=== PATIENT | female | born 1975 | race African-American/Black ===

== ENCOUNTER 2018-07-18 17:05 | Emergency (ER) | payer SELFPAY ==
[~2018-07-18] VITALS: Ht 157.5 cm; Wt 104.0 kg
[2018-07-18 19:54] VITALS: BP 140/71
== END 2018-07-19 01:40 | disposition home or self-care (01) ==
LOC: ER 23:29
DX: M72.2 Plantar fascial fibromatosis (principal); R03.0 Elevated blood-pressure reading, without diagnosis of hypertension; F17.210 Nicotine dependence, cigarettes, uncomplicated
CPT/HCPCS: 81025; 99283

== ENCOUNTER 2019-08-12 17:37 | Emergency (ER) | payer OTHER ==
[~2019-08-12] VITALS: Ht 160 cm; Wt 102.0 kg
[2019-08-12] MEDS ORDERED: ASPIRIN 81MG TABLET PO ONE (19:15)
[2019-08-12] MEDS ORDERED: NITROGLYCERIN 0.4MG TABLET SL SL PRN (19:15)
[2019-08-12 20:04] LABS: BASOPHILS % 0.5 % (0.0-2.0); EOSINOPHILS % 0.7 % (0.0-5.0); HEMATOCRIT. 38.9 % (36.0-48.0); HEMOGLOBIN. 13.4 g/dL (12.0-16.0); LYMPHOCYTES % 31.5 % (20.0-50.0); MEAN CORPUSCULAR HEMOGLOBIN 30.5 pg (28.0-32.0); MEAN CORPUSCULAR VOLUME 88.2 fL (81.0-99.0); MEAN PLATELET VOLUME 8.2 fl (7.4-10.4); MONOCYTES % 7.1 % (2.0-8.0); NEUTROPHILS % 60.2 % (40.0-76.0); PLATELET 246 x1000/uL (130-400); RED BLOOD CELL COUNT 4.41 mill/uL (4.2-5.4)
[2019-08-12 20:09] LABS: CHLORIDE 108 mEq/L (98-107)
[2019-08-12 20:27] LABS: HCG SCREEN NEGATIVE
[2019-08-13 02:06] VITALS: BP 126/74
== END 2019-08-13 02:09 | disposition short-term general hospital (02) ==
LOC: ER 17:37
DX: R07.89 Other chest pain (principal); R20.2 Paresthesia of skin; I25.10 Atherosclerotic heart disease of native coronary artery without angina pectoris; E03.9 Hypothyroidism, unspecified
CPT/HCPCS: 36415; 71045; 80053; 83880; 84484; 84703; 85025; 93005; 99285; Z7610

== ENCOUNTER 2020-04-28 19:06 | Emergency (ER) | payer OTHER ==
[~2020-04-28] VITALS: Ht 160 cm; Wt 98.0 kg
[2020-04-28 20:22] VITALS: BP 148/66
[2020-04-28] MEDS ORDERED: IBUPROFEN 400MG TABLET PO ONE (20:30)
[2020-04-28] MEDS ORDERED: ACETAMINOPHEN 325MG TABLET PO ONE ×2 (20:30)
[2020-04-28 21:04] LABS: BASOPHILS % 0.6 % (0.0-2.0); EOSINOPHILS % 1.7 % (0.0-5.0); HEMATOCRIT. 40.6 % (36.0-48.0); HEMOGLOBIN. 13.9 g/dL (12.0-16.0); LYMPHOCYTES % 24.8 % (20.0-50.0); MEAN CORPUSCULAR HEMOGLOBIN 29.9 pg (28.0-32.0); MEAN CORPUSCULAR VOLUME 87.4 fL (81.0-99.0); MEAN PLATELET VOLUME 8.3 fl (7.4-10.4); MONOCYTES % 4.8 % (2.0-8.0); NEUTROPHILS % 68.1 % (40.0-76.0); PLATELET 228 x1000/uL (130-400); RED BLOOD CELL COUNT 4.65 mill/uL (4.2-5.4); RED CELL DISTRIBUTION WIDTH 13.1 % (11.6-14.6)
[2020-04-28 21:05] LABS: CHLORIDE 108 mEq/L (98-107)
[2020-04-28] MEDS ORDERED: PROT40 MT (23:41)
== END 2020-04-28 23:50 | disposition home or self-care (01) ==
LOC: ER 19:06
DX: R07.89 Other chest pain (principal); R51.9 Headache, unspecified; M54.5 Low back pain; E03.9 Hypothyroidism, unspecified
CPT/HCPCS: 36415; 80048; 84484; 85025; 93005; 99284

== ENCOUNTER 2021-10-23 10:31 | Emergency (ER) | payer OTHER ==
[~2021-10-23] VITALS: Ht 160 cm; Wt 109.0 kg
[~2021-10-23 10:31] MED LIST: PROT40 MT
[2021-10-23 10:41] VITALS: BP 147/86
[2021-10-23] MEDS ORDERED: ONDANSETRON 4MG ODT PO STA (11:50)
[2021-10-23] MEDS ORDERED: MAGNESIUM/ALUMINUM HYDROXIDE/SIMETHICONE 30ML UDC PO STA (11:50)
[2021-10-23 12:53] LABS: BASOPHILS % 0.4 % (0.0-2.0); EOSINOPHILS % 0.9 % (0.0-5.0); HEMATOCRIT. 40.6 % (36.0-48.0); HEMOGLOBIN. 13.9 g/dL (12.0-16.0); LYMPHOCYTES % 22.6 % (20.0-50.0); MEAN CORPUSCULAR HEMOGLOBIN 30.4 pg (28.0-32.0); MEAN CORPUSCULAR VOLUME 88.8 fL (81.0-99.0); MEAN PLATELET VOLUME 8.2 fl (7.4-10.4); MONOCYTES % 8.4 % (2.0-8.0); NEUTROPHILS % 67.7 % (40.0-76.0); PLATELET 270 x1000/uL (130-400); RED BLOOD CELL COUNT 4.57 mill/uL (4.2-5.4); RED CELL DISTRIBUTION WIDTH 13.5 % (11.6-14.6)
[2021-10-23 13:00] LABS: CHLORIDE 107 mEq/L (98-107)
[2021-10-23 13:22] LABS: PROTHROMBIN TIME 10.3 sec (9.6-11.0)
[2021-10-23] MEDS ORDERED: OMEP10CA5 PO (15:23)
== END 2021-10-23 15:29 | disposition home or self-care (01) ==
LOC: ER 10:31
DX: R07.2 Precordial pain (principal); I10 Essential (primary) hypertension; R94.31 Abnormal electrocardiogram [ECG] [EKG]; E03.9 Hypothyroidism, unspecified
CPT/HCPCS: 36415; 71045; 80053; 84484; 85025; 85610; 93005; 99285; Q0162